=== PATIENT | male | born 1980 | race Caucasian/White ===

== ENCOUNTER 2018-04-09 17:47 | Inpatient (IN) | payer OTHER ==
[2018-04-09] MEDS ORDERED: ONDANSETRON 4 MG/2 ML VIAL IVP ONE (18:08)
[2018-04-09] MEDS ORDERED: NS 1,000 ML IV ONE ×2 (18:12→18:18)
[2018-04-09] MEDS ORDERED: KETAMINE 500 MG/10 ML VIAL NASAL ONE (18:19)
[2018-04-09] MEDS ORDERED: KETAMINE 200 MG/20 ML VIAL IVP ONE (18:19)
[2018-04-09 18:24] LABS: PLATELET COUNT 256 10^3/uL (150-400)
--- NOTE | 2018-04-09 18:29 | EDPHY ---
H & P Stated Complaint: epigastric pain nausea x 4 hours Time Seen by Provider: 04/09/18 18:04 HPI/ROS: CHIEF COMPLAINT: Epigastric pain, vomiting HISTORY OF PRESENT ILLNESS: 38-year-old male presents with epigastric pain and vomiting. Onset epigastric pain at 1300 today. The pain has been moderate and persistent. Associated with nausea and vomiting, onset 1.5 hr ago. Unable to tolerate oral fluids. Had a normal bowel movement earlier today, but no flatulence since the onset of vomiting. No fever, diarrhea or previous similar symptoms. REVIEW OF SYSTEMS: complete 10 point ROS reviewed and is negative except for the noted elements in the HPI - Medical/Surgical History Hx Asthma: No Hx Chronic Respiratory Disease: No Hx Diabetes: No Hx Cardiac Disease: No Hx Renal Disease: No Hx Cirrhosis: No Hx Alcoholism: No Hx HIV/AIDS: No Hx Splenectomy or Spleen Trauma: No Other PMH: denies - Social History Smoking Status: Never smoked Alcohol Use: Occasionally Drug Use: None Additional Social History: - Physical Exam Exam: General Appearance: Alert, pleasant Eyes: Pupils equal and round, no conjunctival pallor ENT, Mouth: Mucous membranes moist Neck: Normal inspection Respiratory: Lungs are clear to auscultation Cardiovascular: Regular rate and rhythm Gastrointestinal: Abdomen is soft, epigastric tenderness Neurological: A&O, nonfocal, normal gait Skin: Warm and dry, no rash Extremities: Normal inspection Psychiatric: Mood and affect normal Constitutional: Initial Vital Signs Temperature (C) 36.7 C 04/09/18 17:54 Heart Rate 58 L 04/09/18 17:54 Respiratory Rate 16 04/09/18 17:54 Blood Pressure 123/76 H 04/09/18 17:54 O2 Sat (%) 97 04/09/18 17:54 O2 Delivery Mode Room Air Allergies/Adverse Reactions: No Known Allergies Allergy (Unverified 04/09/18 17:53) Home Medications: Medication Instructions Recorded NK [No Known Home Meds] 04/09/18 Medical Decision Making - Diagnostics Imaging Results: Imaging Impressions Abdomen CT 04/09/18 19:15 Impression: 1. Acute small bowel obstruction involving the jejunum with a transition point left mid to lower abdomen suggesting a closed loop obstruction with possible internal hernia. 2. No evidence of appendicitis, abscess, or pneumoperitoneum. Findings and recommendations discussed with emergency department physician, Mony Denis MD at 1955 hours on April 09, 2018. Final report concurs with initial preliminary interpretation. Imaging: Discussed imaging studies w/ management sme Radiologist, I viewed and interpreted images myself ED Course/Re-evaluation: This patient presents with epigastric pain and vomiting. IV normal saline 1 L, Zofran 4 mg IV and ketamine 15 mg IV given. 7:15 p.m.-nausea has resolved. Continues have moderate abdominal pain, but the abdominal pain has shifted to the left side. Abdomen is soft, left periumbilical tenderness. CT scan of the abdomen pelvis ordered. CT scan reveals a small bowel obstruction. Results discussed with the patient and his . Dr. Marielena Babcock was consulted and took the patient directly to the OR. Differential Diagnosis: Differential diagnosis includes though it is not limited to appendicitis, cholecystitis, diverticulitis, pyelonephritis, bowel perforation, small bowel obstruction. - Data Points Laboratory Results: Laboratory Results 04/09/18 18:10 04/09/18 18:10 04/09/18 04/09/18 18:10 18:10 WBC 12.15 10^3/uL H 10^3/uL (3.80-9.50) RBC 5.36 10^6/uL 10^6/uL (4.40-6.38) Hgb 17.1 g/dL g/dL (13.7-17.5) Hct 48.6 % % (40.0-51.0) MCV 90.7 fL fL (81.5-99.8) MCH 31.9 pg pg (27.9-34.1) MCHC 35.2 g/dL g/dL (32.4-36.7) RDW 12.2 % % (11.5-15.2) Plt Count 256 10^3/uL 10^3/uL (150-400) MPV 9.2 fL fL (8.7-11.7) Neut % (Auto) 85.2 % H % (39.3-74.2) Lymph % (Auto) 8.9 % L % (15.0-45.0) Sharp % (Auto) 4.7 % % (4.5-13.0) Eos % (Auto) 0.5 % L % (0.6-7.6) Baso % (Auto) 0.3 % % (0.3-1.7) Nucleat RBC Rel Count 0.0 % % (0.0-0.2) Absolute Neuts (auto) 10.35 10^3/uL H 10^3/uL (1.70-6.50) Absolute Lymphs (auto) 1.08 10^3/uL 10^3/uL (1.00-3.00) Absolute Monos (auto) 0.57 10^3/uL 10^3/uL (0.30-0.80) Absolute Eos (auto) 0.06 10^3/uL 10^3/uL (0.03-0.40) Absolute Basos (auto) 0.04 10^3/uL 10^3/uL (0.02-0.10) Absolute Nucleated RBC 0.00 10^3/uL 10^3/uL (0-0.01) Immature Gran % 0.4 % % (0.0-1.1) Immature Gran # 0.05 10^3/uL 10^3/uL (0.00-0.10) Sodium 137 mEq/L mEq/L (135-145) Potassium 4.2 mEq/L mEq/L (3.3-5.0) Chloride 96 mEq/L L mEq/L (97-110) Carbon Dioxide 26 mEq/l mEq/l (22-31) Anion Gap 15 mEq/L H mEq/L (6-14) BUN 14 mg/dL mg/dL (7-23) Creatinine 1.0 mg/dL mg/dL (0.7-1.3) Estimated GFR > 60 Glucose 120 mg/dL H mg/dL (70-100) Calcium 10.4 mg/dL mg/dL (8.5-10.4) Total Bilirubin 0.8 mg/dL mg/dL (0.1-1.4) Conjugated Bilirubin 0.3 mg/dL mg/dL (0.0-0.5) Unconjugated Bilirubin 0.5 mg/dL mg/dL (0.0-1.1) AST 36 IU/L IU/L (17-59) ALT 24 IU/L IU/L (21-72) Alkaline Phosphatase 68 IU/L IU/L (38-126) Total Protein 8.9 g/dL H g/dL (6.3-8.2) Albumin 5.0 g/dL g/dL (3.5-5.0) Lipase 61 IU/L IU/L (23-300) Medications Given: Discontinued Medications Sodium Chloride (Ns) 1,000 mls @ 0 mls/hr IV ONCE ONE; Wide Open PRN Reason: Protocol Stop: 04/09/18 18:13 Last Admin: 04/09/18 18:13 Dose: 1,000 mls Sodium Chloride (Ns) 1,000 mls @ 0 mls/hr IV EDNOW ONE; Wide Open PRN Reason: Protocol Stop: 04/09/18 18:19 Last Admin: 04/09/18 18:35 Dose: 1,000 mls Ceftriaxone Sodium/Dextrose (Rocephin 1 Gm (Premix)) 50 mls @ 100 mls/hr IV EDNOW ONE PRN Reason: Protocol Stop: 04/09/18 20:26 Last Admin: 04/09/18 20:19 Dose: 50 mls Metronidazole/Sodium Chloride (Flagyl 500 Mg (Premix)) 100 mls @ 100 mls/hr IV EDNOW ONE PRN Reason: Protocol Stop: 04/09/18 20:56 Last Admin: 04/09/18 20:34 Dose: 100 mls Ketamine HCl (Ketamine) 15 mg IVP EDNOW ONE Stop: 04/09/18 18:20 Last Admin: 04/09/18 18:36 Dose: 15 mg Ketamine HCl (Ketamine) 50 mg NASAL EDNOW ONE Stop: 04/09/18 18:20 Last Admin: 04/09/18 18:27 Dose: Not Given Ondansetron HCl (Zofran) 4 mg IVP EDNOW ONE Stop: 04/09/18 18:09 Last Admin: 04/09/18 18:12 Dose: 4 mg Departure - Departure Disposition: To OP Cath/Surgery Clinical Impression: Small bowel obstruction Condition: Fair
[2018-04-09] MEDS ORDERED: IOPAMIDOL (ISOVUE-300) 100 ML BTL ONE (19:18)
[2018-04-09] MEDS ORDERED: BUPIVACAINE 0.5% 30 ML SDV ONE (20:49)
--- NOTE | 2018-04-09 21:07 | GHP ---
DATE OF ADMISSION: 04/09/2018 CHIEF COMPLAINT: Small bowel obstruction. HISTORY OF PRESENT ILLNESS: Fuad is a 38-year-old man who developed the abrupt onset of pain around 2:00 this afternoon. In fact, he had a normal breakfast including a peanut butter and jelly sandwich and coffee. Initially, he thought he may have had food poisoning from eating a chicken sandwich yesterday, but the pain persisted. He had nausea and vomiting. He stopped passing flatus. Due to the increase of pain in the left upper quadrant, he presented to the ER. A CT scan was obtained which showed acute small bowel obstruction involving the jejunum with a possible transition point in the mid to lower abdomen with possible internal hernia. PAST MEDICAL HISTORY: None. PAST SURGICAL HISTORY: None. SOCIAL HISTORY: He is and has a . He works in sales. No tobacco use. FAMILY HISTORY: Noncontributory to small bowel obstruction. REVIEW OF SYSTEMS: No fevers, chills, change in urine output, chest pain, shortness of breath, skin changes, weakness, neurologic changes. Prior to this there were no issues with constipation or diarrhea. PHYSICAL EXAMINATION: GENERAL: Pleasant, well-nourished, well-groomed man lying on rsherman. HEENT: Normocephalic. No gross hearing deficits. Mucous membranes moist. Pupils equal and round. No scleral icterus. LUNGS: Clear to auscultation bilaterally. No increased work of breathing. CARDIAC: Regular rate. No peripheral edema. ABDOMEN: Bowel sounds present. He is tender to both percussion and palpation in the left upper quadrant. His abdomen is remarkably still fairly soft. SKIN: Warm and dry. PSYCHIATRIC: Mood and affect normal. NEURO: Grossly intact. RESULTS: The results are reviewed. I personally reviewed the results of the CT scan and do see multiple loops of dilated bowel, which looks like a closed loop obstruction in the left upper quadrant. His white blood cell count shows it is slightly elevated at 12.15. Creatinine is normal. His LFTs are normal. IMPRESSION AND PLAN: Fuad Manrique is a 38-year-old with no surgical history and small bowel obstruction with possible closed loop obstruction and internal hernia. I will take him to the operating room for diagnostic laparoscopy, possible laparotomy, possible bowel resection. Risks and benefits, including negative findings, were discussed with him. He had his questions answered to his satisfaction and signed the informed consent. /[id number]/MODL MTDD
[2018-04-09] MEDS ORDERED: MIDAZOLAM 2 MG/2 ML VIAL IVP ONE (21:12)
[2018-04-09] MEDS ORDERED: MIDAZOLAM 2 MG/2 ML VIAL ONE (21:13)
--- NOTE | 2018-04-09 21:16 | PDANEPAE ---
ANE History of Present Illness Laparoscopic small bowel obstruction ANE Past Medical History - Cardiovascular History Hx Hypertension: No Hx Arrhythmias: No Hx Chest Pain: No Hx Coronary Artery / Peripheral Vascular Disease: No Hx CHF / Valvular Disease: No Hx Palpitations: No - Pulmonary History Hx COPD: No Hx Asthma/Reactive Airway Disease: No Hx Recent Upper Respiratory Infection: No Hx Oxygen in Use at Home: No Hx Sleep Apnea: No - Endocrine History Hx Diabetes: No ANE Review of Systems Review of systems is: negative Review of Systems: - Exercise capacity METS (RN): 5 METS ANE Patient History - Allergies Allergies/Adverse Reactions: No Known Allergies Allergy (Unverified 04/09/18 17:53) - Home Medications Home Medications: NK [No Known Home Meds] 04/09/18 [Last Taken Unknown] - NPO status NPO Since - Liquids (Date): 04/09/18 NPO Since - Liquids (Time): 17:00 NPO Since - Solids (Date): 04/09/18 NPO Since - Solids (Time): 09:00 - Anes Hx Anes Hx: no prior problems - Smoking Hx Smoking Status: Never smoked - Alcohol Use Alcohol Use: Occasionally - Family Anes Hx Family Anes Hx: none ANE Labs/Vital Signs - Labs Result Diagrams: 04/09/18 18:10 04/09/18 18:10 - Vital Signs Blood Pressure: 151/82 Heart Rate: 46 Respiratory Rate: 16 O2 Sat (%): 96 Height: 182.88 cm Weight: 86.183 kg ANE Physical Exam - Airway Neck exam: FROM Mouth exam: normal dental/mouth exam - Pulmonary Pulmonary: no respiratory distress, no rales or rhonchi - Cardiovascular Cardiovascular: regular rate and rhythym, no murmur, rub, or gallop - ASA Status ASA Status: I, E ANE Anesthesia Plan Anesthesia Plan: general endotracheal anesthesia (RSI)
[2018-04-09] MEDS ORDERED: fentaNYL 250 MCG/5 ML INJ ONE (21:19)
[2018-04-09] MEDS ORDERED: PROPOFOL/EMULSION 500 MG/50 ML BOTTLE IV ONE (21:20)
[2018-04-09] MEDS ORDERED: PROPOFOL 200 MG/20 ML VIAL ONE (21:20)
[2018-04-09] MEDS ORDERED: fentaNYL 100 MCG/2 ML INJ ONE (21:41)
[2018-04-09] MEDS ORDERED: ONDANSETRON 4 MG/2 ML VIAL ONE (22:22)
[2018-04-09] MEDS ORDERED: ONDANSETRON DISINTEGRATING 4 MG TAB PO PRN (22:23)
[2018-04-09] MEDS ORDERED: ONDANSETRON 4 MG/2 ML VIAL IVP PRN ×2 (22:23→22:45)
[2018-04-09] MEDS ORDERED: HYDROCODONE/APAP 5/325 TAB PO PRN (22:23)
[2018-04-09] MEDS ORDERED: ACETAMINOPHEN 325 MG TAB PO PRN (22:23)
[2018-04-09] MEDS ORDERED: ROCURONIUM 100 MG/10 ML VIAL ONE (22:26)
[2018-04-09] MEDS ORDERED: KETOROLAC 30 MG/1 ML SDV ONE (22:26)
[2018-04-09] MEDS ORDERED: SUGAMMADEX SODIUM 200 MG/2 ML VIAL IVP ONE (22:26)
[2018-04-09] MEDS ORDERED: DEXAMETHASONE 4 MG/ML VIAL ONE (22:26)
[2018-04-09] MEDS ORDERED: GLYCOPYRROLATE 0.2 MG/1 ML VIAL ONE (22:26)
--- NOTE | 2018-04-09 22:28 | POSTOPPROG ---
Post Op Note Date of Operation: 04/09/18 Surgeon: Marielena Babcock Anesthesiologist: brittnee Anesthesia: GET(General Endotracheal) Pre-op Diagnosis: sbo Post-op Diagnosis: sbo Indication: 38 yo with sbo Procedure: lap lui Findings: omentum wrapped around small bowel Inf/Abcess present in the surg proc area at time of surgery?: Yes Depth: Organ Space EBL: Minimal Specimen(s): peritoneal fluid
[2018-04-09] MEDS ORDERED: fentaNYL 100 MCG/2 ML INJ IVP PRN (22:45)
[2018-04-09] MEDS ORDERED: oxyCODONE IR 5 MG TAB PO PRN (22:45)
[2018-04-09] MEDS ORDERED: HYDROmorphONE/DILAUDID 2 MG/ML INJ IVP PRN (22:45)
[2018-04-09] MEDS ORDERED: PROMETHAZINE HCL 25 MG/ML INJ IVP PRN (22:45)
[2018-04-09] MEDS ORDERED: ACETAMINOPHEN 500 MG TAB PO PRN (22:45)
[2018-04-09] MEDS ORDERED: NALOXONE HCL 0.4 MG/ML INJ IVP PRN (22:45)
--- NOTE | 2018-04-09 23:17 | GOP ---
DATE OF OPERATION: 04/09/2018 SURGEON: Marielena Babcock MD ANESTHESIA: General. ANESTHESIOLOGIST: Dr. Milagro March. PREOPERATIVE DIAGNOSIS: Small bowel obstruction. POSTOPERATIVE DIAGNOSIS: Small bowel obstruction. PROCEDURE PERFORMED: Laparoscopic lysis of adhesions. FINDINGS: Band of omentum tightly circumferentially adhered around jejunum with compromised loop of bowel. After the omentum was lysed, then the bowel was recovering. SPECIMENS: Peritoneal fluid for culture. ESTIMATED BLOOD LOSS: 5 cc. INDICATIONS: The patient is a 38-year-old who had acute onset of abdominal pain that was worsening. CT scan showed concern for closed loop obstruction. DESCRIPTION OF PROCEDURE: The patient was brought into the operating room, placed supine on the tabl e and general anesthesia was administered. His abdomen was prepped and draped in the usual sterile f ashion. I infiltrated all sites with 0.5% Marcaine prior to making incisions. I made an incision by his umbilicus. I elevated it. I inserted the Veress needle. It passed the hanging drop test. His abdomen insufflated easily to a pressure of 15 mmHg. I placed a 5 mm camera with a trocar at this s ite. There were no injuries from Veress needle placement. Under direct vision, I placed a 5 mm subx iphoid trocar and a 5 mm trocar in the right upper quadrant. I explored his abdomen. There was a di stinct loop of ischemic bowel. I explored this area and found a tight band of omentum creating a str icture on the bowel. I lysed this and ran the bowel. I waited and could see that blood flow was ret urning to this section of the bowel. I elected not to perform a small bowel resection as the bowel w as appearing healthier. There was peritoneal fluid above the liver in the pelvis and on the left calvin e of the abdomen. I suctioned this and submitted a sample to Pathology for aerobic and anaerobic marco antonio ples. I again looked at the bowel and it was improving. I removed the ports under direct vision and allowed the abdomen to desufflate. Each wound was closed with 4-0 Monocryl. Dermabond applied. He was awakened in the operating room, extubated, transferred to PACU in stable condition. I spoke wit h his by phone after the case. /[id number]/MODL
[2018-04-09] MEDS: KETOROLAC 15 MG/1 ML SDV IVP SCH (23:43)
[2018-04-10] MEDS: D5W 1/2 NS W/ 20 KCl/L 1,000 ML IV SCH ×3 (00:07→18:45)
[2018-04-10 04:47] LABS: PLATELET COUNT 220 10^3/uL (150-400)
[2018-04-10] MEDS: KETOROLAC 15 MG/1 ML SDV IVP SCH ×3 (05:14→17:32)
[2018-04-10] MEDS: ENOXAPARIN 40 MG/0.4 ML SYR SC SCH (08:36)
--- NOTE | 2018-04-10 09:07 | PDMN ---
Medical Necessity Medical necessity: MCG: S210 intestinal obstruction 2 days: CT shows mult. loops of dilated bowel, closed loop obstruction in LUQ., urgent OP: Lap. lysis of adhesions, anticipate > 2 MN ongoing monitoring and tx
--- NOTE | 2018-04-10 09:41 | ASMTCMCOM ---
CM Note CM Note Notes: Pt is a 38 y/o man admitted for a small bowel obstruction. Pt went to surgery w/ Dr. Babcock. Pt will most likely d/c independent when medically stable. No therapies ordered at this time. CM available for changes. Plan: Independent Date Signed: 04/10/2018 09:40 AM Electronically Signed By:REAGAN Lacy
--- NOTE | 2018-04-10 13:48 | SOAPPROG ---
SOAP Progress Note Assessment/Plan: Assessment/Plan: 38yo M POD#1 dx laparoscopy with adhesiolysis for SBO Pain controlled c Toradol Passing flatus Advance to clear liquid diet WBCs trending down. Afebrile Dispo: likely home in am if return of bowel function and tolerates diet S: feeling much better this morning. No pain. No nausea. Able to pass flatus. No urinary issues O: laying in bed, comfortable, NAD CTAB no increased WOB RRR no peripheral edema +BS, abd soft, nondistended, nontender. Incisions CDI Objective: Vital Signs Temp Pulse Resp BP Pulse Ox 36.9 C 61 16 133/88 H 95 04/10/18 11:07 04/10/18 11:07 04/10/18 11:07 04/10/18 11:07 04/10/18 11:07 Microbiology 04/09/18 21:55 Gram Stain - Final Peritoneal Fluid - Aspirate Laboratory Results 04/10/18 04:34 04/09/18 04/10/18 04/11/18 05:59 05:59 05:59 Intake Total 3010 Output Total 580 Balance 2430 ICD10 Worksheet Patient Problems: Problems Problem Status Onset Small bowel obstruction Acute
[2018-04-11] MEDS: KETOROLAC 15 MG/1 ML SDV IVP SCH ×3 (00:31→13:08)
[2018-04-11] MEDS ORDERED: AMOXICILLIN/CLAVULANATE POT 875/125 MG TAB PO SCH (09:00)
[2018-04-11 09:13] VITALS: BP 118/92
--- NOTE | 2018-04-11 09:18 | SOAPPROG ---
SOAP Progress Note Assessment/Plan: Assessment/Plan: 38yo M POD#2 dx laparoscopy with adhesiolysis for SBO Pain controlled c Toradol. Transition to PO meds Passing flatus Advance to regular diet WBCs trending down. Afebrile Dispo: DC later this am if tolerates diet. Seen c Dr. Babcock. S: continues to feel well. No pain. No nausea. Able to pass flatus. No urinary issues O: laying in bed, comfortable, NAD CTAB no increased WOB RRR no peripheral edema +BS, abd soft, nondistended, nontender. Incisions CDI 04/11/18 09:18 Objective: Vital Signs Temp Pulse Resp BP Pulse Ox 36.7 C 49 L 14 118/92 H 95 04/11/18 09:12 04/11/18 09:12 04/11/18 09:12 04/11/18 09:12 04/11/18 09:12 Microbiology 04/09/18 21:55 Gram Stain - Final Peritoneal Fluid - Aspirate Laboratory Results 04/10/18 04:34 04/10/18 04/11/18 04/12/18 05:59 05:59 05:59 Intake Total 3010 1200 Output Total 580 Balance 2430 1200 ICD10 Worksheet Patient Problems: Problems Problem Status Onset Small bowel obstruction Acute
[2018-04-11] MEDS: ENOXAPARIN 40 MG/0.4 ML SYR SC SCH (11:08)
--- NOTE | 2018-04-11 16:02 | POSTANESTH ---
Post Anesthetic Evaluation Cardiovascular Status: Normal, Stable Respiratory Status: Normal, Stable Level of Consciousness/Mental Status: Can Participate in Eval Pain Control: Adequate, Prn Tx Ordered Nausea/Vomiting Control: Adequate, Prn Tx Ordered Complications Possibly Related to Anesthesia: None Noted (Plan to dc home today)
== END 2018-04-11 14:59 | disposition home or self-care (01) | DRG 390 ==
LOC: F3E 23:10
PROVIDERS: ADMIT Surgery; ATTEND Surgery
PROC: 0DN88ZZ Release Small Intestine, Via Natural or Artificial Opening Endoscopic (ICD-10-PCS; principal; 2018-04-09 21:00)
DX: K56.609 Unspecified intestinal obstruction, unspecified as to partial versus complete obstruction (principal); E86.9 Volume depletion, unspecified
CPT/HCPCS: 96365; J0696; J1100; J1650; J1885; J2250; J2405; J2704; J3010; Q9967